=== PATIENT | female | born 1965 | race Caucasian/White ===

== ENCOUNTER 2016-10-12 16:57 | Emergency (ER) | payer OTHER ==
[~2016-10-12] VITALS: Ht 154.9 cm; Wt 90.7 kg
[~2016-10-12 16:57] MED LIST: HUM SUBQ; LANTUS SC
[2016-10-12 17:02] VITALS: BP 139/66
--- NOTE | 2016-10-12 18:18 | NUR ---
PT PRESENTS TO ER FOR EVALUATION OF LEFT ANKLE PAIN. PT STATES SHE HAS HX OF LEFT ANKLE FX. HX DM. DENIES N/V/D; SKIN IS PINK/WARM/DRY; AAOX4 WITH EVEN AND STEADY GAIT; LUNGS CLEAR BL; HR EVEN AND REGULAR; PT DENIES ANY FEVER, CP, SOB, OR COUGH AT THIS TIME; PATIENT STATES PAIN OF 7/10 AT THIS TIME; VSS; PATIENT POSITIONED FOR COMFORT; HOB ELEVATED; BEDRAILS UP X2; BED DOWN. ER MD MADE AWARE OF PT STATUS.
--- NOTE | 2016-10-12 19:17 | NUR ---
RECEIVED REPORT FROM PADMINI BROWN. SHY CHAKRABORTY, AWATING FOR D/C PAPER WORK.
--- NOTE | 2016-10-12 19:29 | NUR ---
PT REFUSED CRUTCHES. PT STATED HAD CRUTCHES AT HOME, AND A WALKER.
[2016-10-12 19:30] VITALS: BP 130/64
--- NOTE | 2016-10-12 19:30 | NUR ---
Patient discharged with v/s stable. Written and verbal after care instructions given and explained. Patient alert, oriented and verbalized understanding of instructions. Wheel Chair Assisted with by FAMILIA REEVES. All questions addressed prior to discharge. ID band removed. Patient advised to follow up with ORTHOPEDIC OR RETURN TO ER IF CONDITION GETS WORSE. PT STATES HAS AN APPT ON 10/19/16. Rx of IBUPROFEN 800MG given. Patient educated on indication of medication including possible reaction and side effects. Opportunity to ask questions provided and answered.
== END 2016-10-12 19:30 | disposition home or self-care (01) ==
LOC: MED 16:57
DX: S82.892D Other fracture of left lower leg, subsequent encounter for closed fracture with routine healing (principal); Z88.5 Allergy status to narcotic agent; E11.9 Type 2 diabetes mellitus without complications; Z79.4 Long term (current) use of insulin
CPT/HCPCS: 29515; 99283

== ENCOUNTER 2017-02-25 17:28 | Emergency (ER) | payer OTHER ==
[~2017-02-25] VITALS: Ht 152.4 cm; Wt 113.6 kg
[2017-02-25 17:35] VITALS: BP 126/69
--- NOTE | 2017-02-25 18:33 | NUR ---
Patient ambulated to bed 4 with family. RN evaluating patient at bedside.
--- NOTE | 2017-02-25 18:34 | NUR ---
2F BIB FAMILY C/O LEFT EAR PAIN X 2 DAYS; PT STATES " I THINK SOMETHING BIT ME BEHIND MY EAR AND IT HURTS" HX: DM. DENIES N/V/D; PT DENIES ANY FEVER, CP, SOB, OR COUGH AT THIS TIME; PATIENT STATES PAIN OF 2/10 AT THIS TIME; PATIENT POSITIONED FOR COMFORT; HOB ELEVATED; BEDRAILS UP X2; BED DOWN. ER MD MADE AWARE OF PT STATUS.
--- NOTE | 2017-02-25 18:48 | NUR ---
ER MD DR FELDER EVALUATING PT AT BEDSIDE.
--- NOTE | 2017-02-25 19:06 | NUR ---
Patient transferred to for further care.
--- NOTE | 2017-02-25 19:30 | NUR ---
Patient discharged with v/s stable. Written and verbal after care instructions given and explained. Patient alert, oriented and verbalized understanding of instructions. Ambulatory with steady gait. All questions addressed prior to discharge. ID band removed. Patient advised to follow up with PMD. Rx of KEFLEX 500 MG given. Patient educated on indication of medication including possible reaction and side effects. Opportunity to ask questions provided and answered.
[2017-02-25 19:46] VITALS: BP 135/61
== END 2017-02-25 19:30 | disposition home or self-care (01) ==
LOC: MED 17:28
DX: H60.12 Cellulitis of left external ear (principal); R03.0 Elevated blood-pressure reading, without diagnosis of hypertension; E11.9 Type 2 diabetes mellitus without complications; Z90.49 Acquired absence of other specified parts of digestive tract; Z79.84 Long term (current) use of oral hypoglycemic drugs; Z88.5 Allergy status to narcotic agent; Z88.1 Allergy status to other antibiotic agents
CPT/HCPCS: 82948; 99283

== ENCOUNTER 2017-03-27 19:27 | Emergency (ER) | payer OTHER ==
[~2017-03-27] VITALS: Ht 154.9 cm; Wt 104.3 kg
[2017-03-27 20:05] VITALS: BP 131/51
[2017-03-27 21:09] LABS: BASOPHILS # (AUTO) 0.2 K/uL (0.00-0.22); EOSINOPHILS # (AUTO) 0.1 K/uL (0-0.4); HEMATOCRIT 42.2 % (36-48); HEMOGLOBIN 14.4 g/dL (12.0-16.0); LYMPHOCYTES # (AUTO) 0.9 K/uL (2.5-16.5); MEAN CORPUSCULAR HEMOGLOBIN 33 pg (27-31); MEAN CORPUSCULAR HGB CONC 34 g/dL (33-37); MEAN CORPUSCULAR VOLUME 97 fL (80-94); MONOCYTES # (AUTO) 0.5 K/uL (0.8-1.0); PLATELET COUNT (AUTO) 37 K/uL (140-450); RED BLOOD CELL COUNT(AUTO) 4.33 MIL/uL (4.20-5.40); RED CELL DISTRIBUTION WIDTH 14.8 % (11.6-13.7); WHITE BLOOD COUNT (AUTO) 3.7 K/uL (4.8-10.8)
[2017-03-27 21:20] LABS: ANION GAP 8.9 (8-16); CREATININE 0.5 mg/dL (0.6-1.3); POTASSIUM 3.9 mmol/L (3.5-5.1)
[2017-03-27 21:25] LABS: ALBUMIN 2.5 g/dL (3.4-5.0); TOTAL BILIRUBIN 2.4 mg/dL (0.0-1.0)
[2017-03-27 21:34] LABS: PROTHROMBIN TIME 12.7 secs (10.8-13.4)
--- NOTE | 2017-03-27 21:52 | NUR ---
TO ER BED 6
--- NOTE | 2017-03-27 22:14 | NUR ---
PATIENT PRESENTS TO ED WITH C/O BILAT SWOLLEN LEGS. . PT DENIES N/V/D; SKIN IS PINK/WARM/DRY; AAOX4 WITH EVEN AND STEADY GAIT; LUNGS CLEAR BL; HR EVEN AND REGULAR; PT DENIES ANY FEVER, CP, SOB, OR COUGH AT THIS TIME; PATIENT STATES PAIN OF 0/10 AT THIS TIME; VSS; PATIENT POSITIONED FOR COMFORT; HOB ELEVATED; BEDRAILS UP X2; BED DOWN. ER MD MADE AWARE OF PT STATUS.
[2017-03-27 22:36] VITALS: BP 131/51
--- NOTE | 2017-03-27 22:36 | NUR ---
Patient discharged with v/s stable. Written and verbal after care instructions given and explained. Patient verbalized understanding. Ambulatory with steady gait. All questions addressed prior to discharge. Advised to follow up with PMD.
== END 2017-03-27 22:36 | disposition home or self-care (01) ==
LOC: MED 19:27
DX: R60.9 Edema, unspecified (principal); R03.0 Elevated blood-pressure reading, without diagnosis of hypertension; Z88.1 Allergy status to other antibiotic agents; Z88.5 Allergy status to narcotic agent; E11.9 Type 2 diabetes mellitus without complications
CPT/HCPCS: 36415; 71010; 80053; 82948; 83880; 84484; 85025; 85610; 85730; 93005; 99285

== ENCOUNTER 2017-11-14 14:48 | Inpatient (IN) | payer OTHER ==
[~2017-11-14] VITALS: Ht 154.9 cm; Wt 107.1 kg
[2017-11-14 15:00] VITALS: BP 142/70
--- NOTE | 2017-11-14 15:05 | NUR ---
PATIENT AMBULATED TO BED 2.
[2017-11-14] MEDS ORDERED: ALBUTEROL SULFATE/IPRATROPIU 3 ML SOL IH ONE (15:15)
[2017-11-14 15:32] LABS: HEMATOCRIT 36.7 % (36-48); HEMOGLOBIN 12.6 g/dL (12.0-16.0); MEAN CORPUSCULAR HEMOGLOBIN 32 pg (27-31); MEAN CORPUSCULAR HGB CONC 34 g/dL (33-37); MEAN CORPUSCULAR VOLUME 94.6 fL (80-94); PLATELET COUNT (AUTO) 48 K/uL (140-450); RED BLOOD CELL COUNT(AUTO) 3.88 MIL/uL (4.20-5.40); RED CELL DISTRIBUTION WIDTH 17.3 % (11.6-13.7)
--- NOTE | 2017-11-14 15:37 | NUR ---
PATIENT PRESENTS TO ER FOR SHORTNESS OF BREATH, NON PRODUCTIVE COUGH, AND LOWER LEG EDEMA X 1 WEEK. PATIENTS BREATHING IS LABORED, PLACED ON 2/L O2. PATIET HAS HX OF CHF, DIABETES, FATTY LIVER DISEASE, AND GALLBLADDER REMOVAL. IV HEPLOCK STARTED, 1 ATTEMPT, PATIENT TOLERATED WELL. EKG DONE. PATIENT SITTING UP IN GURNEY X 1 BEDRAIL UP. ER/MD MADE AWARE OF PATIENT STATUS.
[2017-11-14 15:40] LABS: CARBON DIOXIDE 24.8 mmol/L (21-32); CREATININE 0.6 mg/dL (0.6-1.3); POTASSIUM 3.8 mmol/L (3.5-5.1)
[2017-11-14 15:46] LABS: ALBUMIN 2.1 g/dL (3.4-5.0); TOTAL BILIRUBIN 2.4 mg/dL (0.0-1.0)
[2017-11-14 16:09] LABS: EOSINOPHILS % (MANUAL) 2 % (0-4); LYMPHOCYTES % (MANUAL) 20 % (20-46); MONOCYTES % (MANUAL) 16 % (5-12)
[2017-11-14] MEDS ORDERED: FUROSEMIDE 100 MG/10 ML VIAL IVP ONE (16:15)
[2017-11-14] MEDS ORDERED: LANTUS SUBQ (16:25)
[2017-11-14] MEDS ORDERED: HUM SUBQ (16:25)
[2017-11-14] MEDS ORDERED: NITROGLYCERIN 2% 1 GM PKT TP ONE (16:25)
[2017-11-14] MEDS ORDERED: FURO-570 PO (16:25)
[2017-11-14 16:27] LABS: PROTHROMBIN TIME 10.5 secs (10.8-13.4)
[2017-11-14 16:34] LABS: APPEARANCE,URINE CLEAR (CLEAR); BILIRUBIN,URINE NEGATIVE (NEGATIVE); BLOOD, URINE 2+ (NEGATIVE); COLOR,URINE YELLOW (YELLOW); LEUKOCYTE ESTERASE ,URINE NEGATIVE (NEGATIVE); NITRITE, URINE NEGATIVE (NEGATIVE); UGLUCOSE 3+ (NEGATIVE)
[2017-11-14 16:50] LABS: RBC,URINE 3-10 (FEW) /HPF (0-5); WBC,URINE 0-5 (RARE) /HPF (0-5)
[2017-11-14] MEDS ORDERED: HYDROcodone/APAP 5/325 MG 1 TAB TAB PO PRN ×2 (16:55)
[2017-11-14] MEDS ORDERED: ONDANSETRON 4 MG/2 ML VIAL IVP PRN (16:55)
[2017-11-14] MEDS ORDERED: ACETAMINOPHEN 325 MG TAB PO PRN (16:55)
[2017-11-14] MEDS ORDERED: LORazepam 2 MG/ML VIAL IVP PRN (16:55)
[2017-11-14] MEDS ORDERED: DEXTROSE 50% 50 ML SYR IVP PRN (16:55)
--- NOTE | 2017-11-14 17:05 | NUR ---
PT ARRIVED ON THE UNIT WITH 2 ER NURSES. PT IS ON NC O2 2L. PT AMBULATED FROM GURNEY TO BED TO BATHROOM. STEADY GAIT. PT IS AWAKE AND ORIENTED. INTRODUCED MYSELF AND UPDATED THE BOARD. PT IV ON LAC 20G SL. SKIN INTACT. BLE EDEMA, PITTING +2. ADMINISTERED TELE MONITOR. BROWN SOCKS. MRSA SCREENING DONE. V/S WITHIN NORMAL RANGE. DENIES PAIN AT THIS TIME. WILL CONTINUE TO MONITOR PT.
--- NOTE | 2017-11-14 17:11 | NUR ---
Patient will be admitted to care of . Admited to TELE]. Will go to room. Belongings list completed. Report to .
[2017-11-14 17:20] VITALS: BP 146/65
--- NOTE | 2017-11-14 18:44 | NUR ---
PT ON FLUID RESTRICTION OF 2L/DAY. PT IS ON STRICT I & O. REQUESTED PRICING CLERK TO PUT HAT IN BATHROOM. PT ATE DINNER AND RESTING COMFORTABLY. WILL CONTINUE TO MONITOR PT.
--- NOTE | 2017-11-14 19:15 | NUR ---
ENDORSED PT TO THE ZINC CHLORIDE OPERATOR NURSE AT BEDSIDE FOR CONTINUITY OF CARE. PT IS IN STABLE CONDITION.
--- NOTE | 2017-11-14 19:20 | NUR ---
RECEIVED PT FROM LONNIE WASHINGTON PT MORBID OBESITY ON 02 2 LTS VIA NC LABORED BREATHING EDEMA ON BLE ON TELEMETRY SR HL ON LEFT AC PATENT, DR YESENIA Sow IS HERE AND SEE THE PT
[2017-11-14 20:00] VITALS: BP 116/62
[2017-11-14] MEDS: BLOOD GLUCOSE MONITORING 1 DEV DEV FS SCH (20:56)
[2017-11-14] MEDS: INSULIN LISPRO SLIDING SCALE 100 UNITS/ML VIAL SUBQ PRN (20:59)
[2017-11-14] MEDS ORDERED: FUROSEMIDE 40 MG/4 ML VIAL IVP SCH (21:00)
[2017-11-14] MEDS: POTASSIUM CHLORIDE 10 MEQ TABER PO SCH (21:05)
[2017-11-14] MEDS: guaiFENesin DM 200/20 MG-10 ML 10 ML UDC PO PRN (21:06)
--- NOTE | 2017-11-14 21:30 | NUR ---
PT REMAIN STABLE AFTER TAKEN ROBITUSSIN
--- NOTE | 2017-11-14 23:03 | NUR ---
PT SLEEPING WELL ON TELEMETRY SR NOT SOB NOTED
[2017-11-15] VITALS: BP 118/51
[2017-11-15 00:30] LABS: CREATINE KINASE MB 0.4 ng/mL (0-3.6)
--- NOTE | 2017-11-15 01:00 | NUR ---
PT SLEEPING ON 2 LTS VIA NC NOT RESP DISTRESS NOTED ON TELEMETRY SR
[2017-11-15 04:00] VITALS: BP 118/47
--- NOTE | 2017-11-15 04:00 | NUR ---
SPONGE BATH GIVEN, LINEN CHANGED ON TELEMETRY SR REPOSITIONED PT ON 09 01 LTS VIA NC
[2017-11-15] MEDS: guaiFENesin DM 200/20 MG-10 ML 10 ML UDC PO PRN (04:47)
[2017-11-15] MEDS: ALBUTEROL 0.083% 2.5 MG/3 ML NEBU IH PRN ×3 (05:31→18:55)
[2017-11-15] MEDS: BLOOD GLUCOSE MONITORING 1 DEV DEV FS SCH ×4 (06:18→20:39)
[2017-11-15] MEDS: INSULIN LISPRO SLIDING SCALE 100 UNITS/ML VIAL SUBQ PRN ×4 (06:18→20:42)
--- NOTE | 2017-11-15 06:39 | NUR ---
BLOOD SUGAR TEST 177 GIVEN 2 UNITS SUBQ HUMALOG FOLLOWING PROTOCOL, PT ON TELEMETRY SR AND RESP HERE BREATHING TX ALREADY GIVEN
--- NOTE | 2017-11-15 07:40 | NUR ---
ENDORSEMENT RECEIVED FROM TEMPERATURE INSPECTOR NURSE. PATIENT IS AWAKE, ALERT. RESPIRATION EVEN, TACHYPNEIC ON 2L NC. COMPLAINED OF SOB. O2 WAS INCREASED TO 3L. VS IS STABLE. SKIN DRY AND WARM. IV PATENT AND INTACT. DENIED PAIN AT THIS TIME. PLAN OF CARE WAS DISCUSSED WITH PATIENT. BED AT LOW POSITION, SIDE RAILS UP. CALL LIGHT WITHIN REACH.
--- NOTE | 2017-11-15 07:58 | NUR ---
PT WAS NOT IN RESPIRATORY DISTRESS OR NO SOB NOTED. ASKED PT IF TX IS NEEDED AND SHE STATED DOES NOT WANT TX. SP02 94% HR 88 RR 16. WILL CONTINUE TO MONITOR.
[2017-11-15 08:00] VITALS: BP 110/47
[2017-11-15] MEDS: ENOXAPARIN 40 MG/0.4 ML SYR SUBQ SCH (08:33)
[2017-11-15] MEDS: FUROSEMIDE 40 MG/4 ML VIAL IVP SCH (08:35)
[2017-11-15] MEDS: POTASSIUM CHLORIDE 10 MEQ TABER PO SCH ×2 (08:35→20:46)
[2017-11-15 09:26] LABS: RED CELL DISTRIBUTION WIDTH 17.4 % (11.6-13.7)
[2017-11-15 09:45] LABS: HEMOGLOBIN 12.3 g/dL (12.0-16.0); MEAN CORPUSCULAR HEMOGLOBIN 32 pg (27-31); MEAN CORPUSCULAR HGB CONC 34 g/dL (33-37); MEAN CORPUSCULAR VOLUME 93.8 fL (80-94); PLATELET COUNT (AUTO) 62 K/uL (140-450); RED BLOOD CELL COUNT(AUTO) 3.84 MIL/uL (4.20-5.40); WHITE BLOOD COUNT (AUTO) 3.3 K/uL (4.8-10.8)
[2017-11-15 10:20] LABS: CREATINE KINASE MB 0.6 ng/mL (0-3.6)
[2017-11-15 10:21] LABS: ALBUMIN 2.2 g/dL (3.4-5.0); ANION GAP 8.9 (8-16); CARBON DIOXIDE 27.7 mmol/L (21-32); CREATININE 0.7 mg/dL (0.6-1.3); MAGNESIUM 1.3 mg/dL (1.8-2.4); POTASSIUM 3.6 mmol/L (3.5-5.1); TOTAL BILIRUBIN 2.9 mg/dL (0.0-1.0)
[2017-11-15 10:33] LABS: EOSINOPHILS % (MANUAL) 1 % (0-4); LYMPHOCYTES % (MANUAL) 25 % (20-46); MONOCYTES % (MANUAL) 12 % (5-12)
--- NOTE | 2017-11-15 10:58 | NUR ---
CONSENTS FOR CT AND MEDICAL RECORD WERE SIGNED AT BEDSIDE, BY PATIENT. DR. ALEX WAS MADE AWARE OF MG 1.3.
[2017-11-15] MEDS: guaiFENesin 20 MG/ML UDC PO PRN ×3 (11:02→21:00)
--- NOTE | 2017-11-15 11:15 | NUR ---
PATIENT AWAKE, ALERT. COMPLAINED OF NON PRODUCTIVE COUGH, MED WAS GIVEN PER ORDER. US TECH WAS AT BEDSIDE
--- NOTE | 2017-11-15 11:22 | NUR ---
CM NOTE INITIAL REVIEW FAXED TO [facility] [phone] SINGH # [phone]
[2017-11-15 12:00] VITALS: BP 112/39
[2017-11-15] MEDS ORDERED: MAG SULF 2000 MG/WATER PREMIX 50 ML IV SCH ×2 (12:15→15:09)
[2017-11-15] MEDS ORDERED: INSULIN LISPRO 100 UNITS/ML VIAL SUBQ SCH (13:00)
--- NOTE | 2017-11-15 14:00 | NUR ---
PATIENT WAS TRANSFERRED BACK FROM CT SCAN. PATIENT IS STABLE AT THIS TIME.
--- NOTE | 2017-11-15 14:01 | NUR ---
PATIENT HAS BEEN SCREENED AND CATEGORIZED HIGH NUTRITION RISK. PATIENT WILL BE SEEN WITHIN 1-2 DAYS OF ADMISSION. 11/15/17 - 11/16/[address]
--- NOTE | 2017-11-15 14:56 | NUR ---
11/15/17 RD INITIAL ASSESSMENT COMPLETED PLEASE REFER TO NUTRITION ASSESSMENT UNDER CARE ACTIVITY FOR ESTIMATED NUTRITIONAL NEEDS. 1. CONTINUE 2 GM NA AND CCHO 60 GM DIET TOLERATED 2. PROVIDED FLUID RESTRICTION AND CHF DIET EDUCATION TO PATIENT. 3. RD TO FOLLOW-UP 2-3 DAYS, HIGH RISK MADAY KOROMA RD
--- NOTE | 2017-11-15 15:57 | NUR ---
PATIENT AWAKE, ALERT. RESPIRATION EVEN, UNLABOR ON 3L NC. DENIED PAIN, SOB AT THIS TIME. VS IS STABLE. COMPLAINED OF INTERMITTENT COUGH, WILL MEDICATE PER ORDER. FAMILY AT BEDSIDE. CALL LIGHT WITHIN REACH
[2017-11-15 16:00] VITALS: BP 110/39
--- NOTE | 2017-11-15 17:08 | NUR ---
PATIENT COMPLAINED OF INTERMITTENT, NON PRODUCTIVE COUGH. MED WAS GIVEN PER ORDER.
--- NOTE | 2017-11-15 18:15 | NUR ---
PATIENT AWAKE, ALERT. RESPIRATION EVEN, UNLABOR ON 3L NC. IV PATENT AND INTACT. NO DISTRESS NOTED AT THIS TIME.DR. PATTERSON WAS AT BEDSIDE. FAMILY AT BEDSIDE. CALL LIGHT WITHIN REACH
--- NOTE | 2017-11-15 19:05 | NUR ---
RN CALLED TO BEDSIDE TO ASSESS FOR BREATHING TREATMENT. PATIENT COMPLAINING OF SOB. PRN TX ADMINISTERED. TOLERATED TX WELL. PATIENT STATES TO "FEEL BETTER". NO RESPIRATORY DISTRESS NOTED. WILL CONTINUE TO MONITOR.
--- NOTE | 2017-11-15 19:20 | NUR ---
ENDORSEMENT GIVEN TO THE SENIOR TECHNOLOGIST NURSE. PATIENT IS STABLE AT THIS TIME
--- NOTE | 2017-11-15 19:25 | NUR ---
RECEIVED PT FROM WILIAN WASHINGTON PT AAOX4 RESTING ON BED ON 02 3 LTS VIA NC ON TELEMETRY SR HL PATENT ON LEFT AC INITIAL ASSESSMENT DONE
[2017-11-15 20:00] VITALS: BP 137/57
--- NOTE | 2017-11-15 21:30 | NUR ---
BLOOD SUGAR TEST 235 COVERAGE WITH 4 UNITS HUMALOG SUBQ FOLLOWING PROTOCOL
[2017-11-16] VITALS: BP 130/60
--- NOTE | 2017-11-16 01:00 | NUR ---
PT SLEEPING WELL NOT DISTRESS NOTED ON 09 02 LTS VIA NC ON TELEMETRY SR
[2017-11-16 04:00] VITALS: BP 116/51
--- NOTE | 2017-11-16 04:00 | NUR ---
SPONGE BATHGIVEN LINEN CHANGED PT AMBULATES TO THE RESTROOOM VOIDING WELL ON TELE SR NOT SOB NOTED
[2017-11-16] MEDS: BLOOD GLUCOSE MONITORING 1 DEV DEV FS SCH ×4 (06:32→21:08)
--- NOTE | 2017-11-16 06:37 | NUR ---
BLOOD SUGAR TEST 147 NOT COVERAGE PT SLEEPING WELL
--- NOTE | 2017-11-16 07:40 | NUR ---
PATIENT WAS SLEEPING COMFORTABLY, EASILY AROUSABLE BY NAME. RESPIRATION EVEN, TACHYPNIC ON 3L NC. COMPLAINED OF SOB, WHEEZING UPON AUSCULTATION, O2 WAS INCREASED TO 4L, RT WAS NOTIFIED FOR BREATHING TX. SKIN DRY AND WARM. IV PATENT AND INTACT. DENIED PAIN AT THIS TIME. PLAN OF CARE WAS DISCUSSED WITH PATIENT. BED AT LOW POSITION, SIDE RAILS UP. CALL LIGHT WITHIN REACH.
[2017-11-16 07:45] LABS: CHOL/HDL RATIO 3.9 (1-4.5); THYROID STIMULATING HORMONE 1.17 uIU/mL (0.34-3.74)
[2017-11-16 08:00] VITALS: BP 130/66
[2017-11-16] MEDS: guaiFENesin 20 MG/ML UDC PO PRN ×2 (08:29→16:53)
[2017-11-16] MEDS: POTASSIUM CHLORIDE 10 MEQ TABER PO SCH ×2 (08:29→21:05)
[2017-11-16] MEDS: FUROSEMIDE 40 MG/4 ML VIAL IVP SCH (08:29)
[2017-11-16] MEDS ORDERED: INSULIN LANTUS 100 UNITS/ML 10 ML VIAL SUBQ SCH ×2 (09:00→21:00)
[2017-11-16] MEDS: ENOXAPARIN 40 MG/0.4 ML SYR SUBQ SCH (09:00)
--- NOTE | 2017-11-16 09:48 | NUR ---
CM NOTE CONCURRENT REVIEW FAXED TO [facility] [phone] SINGH # [phone]
[2017-11-16] MEDS ORDERED: MAG SULF 2000 MG/WATER PREMIX 100 ML IV SCH (10:00)
[2017-11-16] MEDS: ALBUTEROL 0.083% 2.5 MG/3 ML NEBU IH PRN ×2 (10:01→15:14)
--- NOTE | 2017-11-16 11:37 | NUR ---
PATIENT IS SLEEPING COMFORTABLY. RESPIRATION EVEN, UNLABOR ON 3L NC. DENIED PAIN, SOB AT THIS TIME. NO DISTRESS NOTED. VS IS STABLE. CALL LIGHT WITHIN REACH
[2017-11-16 11:49] LABS: BASOPHILS # (AUTO) 0.1 K/uL (0.00-0.22); BASOPHILS % (AUTO) 1.5 % (0.0-2.0); EOSINOPHILS # (AUTO) 0.2 K/uL (0-0.4); EOSINOPHILS % (AUTO) 5.2 % (0.0-4.0); HEMATOCRIT 35.8 % (36-48); HEMOGLOBIN 11.7 g/dL (12.0-16.0); LYMPHOCYTES # (AUTO) 0.8 K/uL (2.5-16.5); LYMPHOCYTES % (AUTO) 19.5 % (20.5-51.1); MEAN CORPUSCULAR HEMOGLOBIN 31 pg (27-31); MEAN CORPUSCULAR HGB CONC 33 g/dL (33-37); MONOCYTES # (AUTO) 0.8 K/uL (0.8-1.0); MONOCYTES % (AUTO) 19.4 % (1.7-9.3); NEUTROPHILS # (AUTO) 2.2 K/uL (1.8-7.7); NEUTROPHILS % (AUTO) 54.4 % (42.2-75.2); PLATELET COUNT (AUTO) 52 K/uL (140-450); RED BLOOD CELL COUNT(AUTO) 3.73 MIL/uL (4.20-5.40); RED CELL DISTRIBUTION WIDTH 18.2 % (11.6-13.7)
[2017-11-16] MEDS: INSULIN LISPRO SLIDING SCALE 100 UNITS/ML VIAL SUBQ PRN ×3 (11:53→21:15)
[2017-11-16 12:00] VITALS: BP 121/52
[2017-11-16 12:16] LABS: ANION GAP 9.9 (8-16); CARBON DIOXIDE 25.3 mmol/L (21-32); CREATININE 0.5 mg/dL (0.6-1.3); POTASSIUM 4.2 mmol/L (3.5-5.1)
--- NOTE | 2017-11-16 13:52 | NUR ---
PATIENT AWAKE, ALERT. RESPIRATION EVEN, UNLABOR ON ROOM AIR. RESPIRATION EVEN, UNLABOR ON 3L NC. COMPLAINED OF INTERMITTENT NON PRODUCTIVE COUGH, WILL MEDICATE PER ORDER. CALL LIGHT WITHIN REACH. 2ND BAG OF MAG WAS HUNG.
--- NOTE | 2017-11-16 15:05 | NUR ---
PATIENT AWAKE, ALERT. COMPLAINED OF SOB ON 3L AND REQUESTED BREATHING TREATMENT. RT WAS NOTIFIED.
[2017-11-16 16:00] VITALS: BP 120/52
--- NOTE | 2017-11-16 16:00 | NUR ---
PATIENT IS AWAKE, ALERT. RESPIRATION EVEN, TACHYPNEIC AND DESATURATE ON 4L NC. RT WAS AT BEDSIDE, PATIENT IS PLACED ON 3L OXIMIZER. IV PATENT AND INTACT. VS IS STABLE.
--- NOTE | 2017-11-16 16:02 | NUR ---
DR. GRAY WERE MADE AWARE OF PATIENT'S SOB AND WHEEZING AFTER BREATHING TREATMENT. ORDERS WERE RECEIVED, WILL MEDICATE PER ORDER
--- NOTE | 2017-11-16 18:05 | NUR ---
PATIENT IS AWAKE, ALERT, EATING DINNER. RESPIRATION EVEN, UNLABOR ON 3L OXIMIZER. IV PATENT AND INTACT. NO DISTRESS NOTED AT THIS TIME. CALL LIGHT WITHIN REACH
--- NOTE | 2017-11-16 19:19 | NUR ---
ENDORSEMENT GIVEN TO THE METAL SPRAYER PROTECTIVE COATING NURSE. PATIENT IS STABLE AT THIS TIME
--- NOTE | 2017-11-16 19:23 | NUR ---
RECEIVED REPORT FROM NIGHT RN. PT RESTING IN BED. AAOX4. NO S/S OF ACUTE DISTRESS. PT DENIES PAIN. IV SITE PATENT AND INTACT. ON O2 4L NC. PLAN OF CARE DISCUSSED AND PT VERBALIZED UNDERSTANDING. CALL LIGHT WITHIN REACH. SAFETY MEASURES ENSURED. WILL CONTINUE TO MONITOR.
[2017-11-16 20:00] VITALS: BP 122/54
[2017-11-16] MEDS: ALBUTEROL SULFATE/IPRATROPIU 3 ML SOL IH SCH (20:33)
[2017-11-16] MEDS: methylPREDNISolone SS 40 MG/ML VIAL IVP SCH (21:05)
[2017-11-17] VITALS: BP 125/61
--- NOTE | 2017-11-17 01:22 | NUR ---
PT SLEEPING IN BED. NO S/S OF ACUTE DISTRESS. CALL LIGHT WITHIN REACH. SAFETY MEASURES ENSURED. WILL CONTINUE TO MONITOR.
[2017-11-17] MEDS: ALBUTEROL SULFATE/IPRATROPIU 3 ML SOL IH SCH ×4 (02:03→18:43)
[2017-11-17 04:00] VITALS: BP 120/60
--- NOTE | 2017-11-17 04:08 | NUR ---
PT SLEEPING IN BED. NO S/S OF ACUTE DISTRESS. CALL LIGHT WITHIN REACH. SAFETY MEASURES ENSURED. WILL CONTINUE TO MONITOR.
[2017-11-17] MEDS: methylPREDNISolone SS 40 MG/ML VIAL IVP SCH ×3 (05:32→20:56)
[2017-11-17] MEDS: BLOOD GLUCOSE MONITORING 1 DEV DEV FS SCH ×4 (05:32→20:55)
[2017-11-17] MEDS: INSULIN LISPRO SLIDING SCALE 100 UNITS/ML VIAL SUBQ PRN ×4 (06:32→21:06)
[2017-11-17 06:36] LABS: BASOPHILS % (AUTO) 0.2 % (0.0-2.0); EOSINOPHILS % (AUTO) 0.2 % (0.0-4.0); HEMATOCRIT 37.2 % (36-48); HEMOGLOBIN 12.6 g/dL (12.0-16.0); LYMPHOCYTES # (AUTO) 0.4 K/uL (2.5-16.5); LYMPHOCYTES % (AUTO) 13.6 % (20.5-51.1); MEAN CORPUSCULAR HEMOGLOBIN 32 pg (27-31); MEAN CORPUSCULAR HGB CONC 34 g/dL (33-37); MEAN CORPUSCULAR VOLUME 95.7 fL (80-94); MONOCYTES # (AUTO) 0.1 K/uL (0.8-1.0); MONOCYTES % (AUTO) 4.1 % (1.7-9.3); NEUTROPHILS # (AUTO) 2.5 K/uL (1.8-7.7); NEUTROPHILS % (AUTO) 81.9 % (42.2-75.2); PLATELET COUNT (AUTO) 49 K/uL (140-450); RED BLOOD CELL COUNT(AUTO) 3.89 MIL/uL (4.20-5.40); RED CELL DISTRIBUTION WIDTH 17.7 % (11.6-13.7); WHITE BLOOD COUNT (AUTO) 3.1 K/uL (4.8-10.8)
--- NOTE | 2017-11-17 07:25 | NUR ---
ENDORSED PLAN OF CARE TO NIGHT RN. PT REMAINS STABLE.
--- NOTE | 2017-11-17 07:30 | NUR ---
PATIENT IS AWAKe, ALERT. RESPIRATION EVEN, UNLABOR. SKIN DRY AND WARM. IV PATENT AND INTACT. DENIED PAIN AT THIS TIME. COMPLAINED OF COUGHING, AND SLIGHT SOB. PATIENT IS GETTING BREATHING TX BY RT. PATIENT WAS INFORMED THAT THE O2 WILL BE DECREASE TO 2L TO ASSESS HER BREATHING. PATIENT VERBALIZED UNDERSTANDING. PLAN OF CARE WAS DISCUSSED WITH PATIENT. BED AT LOW POSITION, HOB IS ELEVATED. CALL LIGHT WITHIN REACH
[2017-11-17 07:38] LABS: ANION GAP 11.2 (8-16); CARBON DIOXIDE 23.8 mmol/L (21-32); CREATININE 0.6 mg/dL (0.6-1.3)
[2017-11-17 08:00] VITALS: BP 128/55
[2017-11-17] MEDS: guaiFENesin 20 MG/ML UDC PO PRN ×2 (09:07→21:26)
[2017-11-17] MEDS: POTASSIUM CHLORIDE 10 MEQ TABER PO SCH ×2 (09:07→20:56)
[2017-11-17] MEDS: FUROSEMIDE 40 MG/4 ML VIAL IVP SCH (09:08)
--- NOTE | 2017-11-17 09:15 | NUR ---
PT PULSE OX SPO2 WALKING FROM RESTROOM .84 ROOM AIR PLACED PT ON 2LPM NC SPO2 94 RN AWARE
[2017-11-17] MEDS ORDERED: PRED10TA6 PO (09:16)
[2017-11-17] MEDS ORDERED: DOXY-441 PO (09:16)
[2017-11-17] MEDS ORDERED: ALBU117P IH (09:16)
[2017-11-17] MEDS: INSULIN LANTUS 100 UNITS/ML 10 ML VIAL SUBQ SCH ×2 (09:17→21:05)
--- NOTE | 2017-11-17 09:30 | NUR ---
PATIENT DESATURATED TO 86% ON ROOM AIR FROM WALKING TO THE BATHROOM, AND 92% ON 2L NC PER RT. DR. GRAY WERE MADE AWARE
--- NOTE | 2017-11-17 11:41 | NUR ---
FAXED CONCURRENT REVIEW TO [facility] [phone] PHONE SINGH [phone] I SPOKE WITH SINGH ABOUT HOME O2. SHE SAID TO CALL RAYMOND MATUTE [phone]. I SPOKE WITH RAYMOND AND FAXED ORDER, ETC TO HIM AT [phone].
--- NOTE | 2017-11-17 11:59 | NUR ---
PATIENT IS AWAKE, ALERT. RESPIRATION EVEN, UNLABOR ON 2L NC. COMPLAINED OF LIGHT HEADACHE, INSTRUCTED PATIENT TO REPOSITION OR GET UP SLOWLY. PATIENT VERBALIZED UNDERSTANDING. SPONGE BATH WAS GIVEN. NO DISTRESS NOTED AT THIS TIME
[2017-11-17 12:00] VITALS: BP 108/48
--- NOTE | 2017-11-17 13:30 | NUR ---
RECEIVED REPORT FROM PADMINI HARDING REGARDING PATIENT. PATIENT SITTING IN BED WATCHING TV. NO DISTRESS NOTED. RESPIRATIONS EVEN, UNLABORED, ON O2 2L/MIN VIA NC. SAFETY MEASURES IN PLACE, CALL LIGHT WITHIN REACH. WILL CONTINUE TO MONITOR.
--- NOTE | 2017-11-17 14:02 | NUR ---
PHYSICAL THERAPIST AT BEDSIDE WORKING WITH PATIENT. WILL CONTINUE TO MONITOR.
[2017-11-17 16:00] VITALS: BP 109/54
--- NOTE | 2017-11-17 16:15 | NUR ---
11/17/17 RD FOLLOW UP COMPLETED PLEASE REFER TO NUTRITION ASSESSMENT UNDER CARE ACTIVITY FOR ESTIMATED NUTRITIONAL NEEDS. 1.[facility]UE [facility] AND 2 GM NA DIET TOLERATED 2.PROVIDIED [facility] DIET EDUCATION TO PT. 3.RD FOLLOW-UP 3-5 DAYS, MODERATE RISK MADAY KOROMA RD
--- NOTE | 2017-11-17 17:02 | NUR ---
PATIENT SITTING IN BED TALKING WITH DAUGHTER AT BEDSIDE. NO DISTRESS NOTED. DENIES ANY PAIN. SAFETY MEASURES IN PLACE, CALL LIGHT WITHIN REACH. WILL CONTINUE TO MONITOR.
--- NOTE | 2017-11-17 19:22 | NUR ---
RECEIVED REPORT FROM DAY SHIFT NURSE MIKE-RN. PT RESTING IN BED TALKING ON THE PHONE WITH FAMILY. NO S/S OF RESPIRATORY DISTRESS OR DISCOMFORT NOTED AT THIS TIME. AOX4, ON 2L NC WITH IV LEFT AC #20G SALINE LOCK. IV PATENT AND FLUSHING WELL. DISCUSSED CURRENT PLAN OF CARE AND PT VERBALIZED UNDERSTANDING. WHITE BOARD UPDATED. BED IN LOWEST POSITION, BED BREAKS LOCKED. BED SIDE TABLE AND CALL LIGHT WITHIN REACH. WILL CONTINUE TO MONITOR.
--- NOTE | 2017-11-17 19:22 | NUR ---
GAVE REPORT TO MAPLE PRODUCTS SUPERVISOR NURSE FOR CONTINUITY OF CARE. PATIENT IN STABLE CONDITION.
[2017-11-17 20:00] VITALS: BP 128/51
--- NOTE | 2017-11-17 20:55 | NUR ---
BLOOD GLUCOSE LEVEL 355. PT WILL NEED INSULIN COVERAGE.
--- NOTE | 2017-11-17 21:30 | NUR ---
SCHEDULED MEDICATION GIVEN. HUMALOG 10UNITS GIVEN PER SLIDING SCALE AND 10 UNITS OF LANTUS GIVEN SCHEDULED FOR 355 BLOOD GLUCOSE. PT ALSO REQUESTED ROBITUSSIN FOR COUGH AND GIVEN. KDUR WITHHELD PER CONTRAINDICATED PARAMETERS- POTASSIUM LEVELS CURRENTLY 5.0 OF THIS MORNING. PT TOLERATED MEDICATIONS WELL. WILL CONTINUE TO MONITOR.
--- NOTE | 2017-11-17 23:21 | NUR ---
PT RESTING WATCHING TV AT THIS TIME. NO S/S OF RESPIRATORY DISTRESS OR DISCOMFORT NOTED AT THIS TIME. WILL CONTINUE TO MONITOR.
[2017-11-18] VITALS: BP 129/67
--- NOTE | 2017-11-18 01:03 | NUR ---
PT CONTINUES TO REST IN BED WATCHING TV. WILL CONTINUE TO MONITOR.
[2017-11-18] MEDS: ALBUTEROL SULFATE/IPRATROPIU 3 ML SOL IH SCH ×2 (01:14→07:04)
--- NOTE | 2017-11-18 02:05 | NUR ---
PT C/O SOB, CRYING AND ANXIOUS. CONTACTED RT THERAPIST. SIMPLE MASK APPLIED AND O2 INCREASED TO 6L. PT ALSO C/O DRY THROAT DESPITE USING THROAT COUGH DROPS AND MOISTENING MOUTH WITH WATER. O2SATS INCREASED FROM 93% TO 95% WITH SIMPLE MASK. WILL CONTINUE TO MONITOR.
--- NOTE | 2017-11-18 02:09 | NUR ---
0115 HHNTX GIVEN. PT STILL COMPLAINS OF SOB. PLACED PT ON 6L SIMPLE MASK.. PT WILL WEAR THAT TO SEE IF IT IMPROVES HER BREATHING. SATS 97% ON 6LSM
--- NOTE | 2017-11-18 02:15 | NUR ---
PT NOW SITTING UP IN HIGH FOWLERS WITH SIMPLE FACE MASK ON 6L O2. NO LONGER ANXIOUS. O2SATS AT 97%. STILL C/O DRY MOUTH. BLAMING THE SOLU-MEDROL FOR THE DRY MOUTH AND NOT WANTING HER 0500 DOSE. WILL CONTINUE TO MONITOR.
--- NOTE | 2017-11-18 02:50 | NUR ---
PT STATED THAT THE 6L IN THE SIMPLE MASK WAS TOO MUCH AND WANTED IT LOWERED. O2 HAD BEEN LOWERED ON THE WALL TO 3L AND I LOWERED IT BACK TO 2L. PT NO LONGER CRYING OR ANXIOUS HOWEVER STILL C/O DRY THROAT AND DRINKING WATER TO MOISTEN HER THROAT. SUGGESTED SHE USE MOUTH WASH TO MOISTEN HER MOUTH SINCE SHE IS ON FLUID RESTRICTIONS. WILL CONTINUE TO MONITOR.
[2017-11-18 04:00] VITALS: BP 113/59
[2017-11-18] MEDS: methylPREDNISolone SS 40 MG/ML VIAL IVP SCH (05:00)
--- NOTE | 2017-11-18 05:00 | NUR ---
PT RESTING IN BED. WILL CONTINUE TO MONITOR.
[2017-11-18] MEDS: BLOOD GLUCOSE MONITORING 1 DEV DEV FS SCH ×2 (05:58→11:30)
[2017-11-18 06:43] LABS: HEMATOCRIT 35.8 % (36-48); HEMOGLOBIN 11.8 g/dL (12.0-16.0); LYMPHOCYTES # (AUTO) 0.6 K/uL (2.5-16.5); LYMPHOCYTES % (AUTO) 7.6 % (20.5-51.1); MEAN CORPUSCULAR HEMOGLOBIN 32 pg (27-31); MEAN CORPUSCULAR HGB CONC 33 g/dL (33-37); MEAN CORPUSCULAR VOLUME 96.3 fL (80-94); MONOCYTES # (AUTO) 0.5 K/uL (0.8-1.0); MONOCYTES % (AUTO) 6.6 % (1.7-9.3); NEUTROPHILS # (AUTO) 6.3 K/uL (1.8-7.7); NEUTROPHILS % (AUTO) 85.8 % (42.2-75.2); PLATELET COUNT (AUTO) 53 K/uL (140-450); RED BLOOD CELL COUNT(AUTO) 3.72 MIL/uL (4.20-5.40); RED CELL DISTRIBUTION WIDTH 18.3 % (11.6-13.7); WHITE BLOOD COUNT (AUTO) 7.3 K/uL (4.8-10.8)
[2017-11-18] MEDS: INSULIN LISPRO SLIDING SCALE 100 UNITS/ML VIAL SUBQ PRN ×2 (06:50→12:50)
[2017-11-18 07:02] LABS: ANION GAP 11.5 (8-16); CARBON DIOXIDE 23.5 mmol/L (21-32); CREATININE 0.7 mg/dL (0.6-1.3)
--- NOTE | 2017-11-18 07:10 | NUR ---
ENDORSED PT CARE TO DAY SHIFT NURSE LISETH FOR CONTINUITY OF CARE. PT IN STABLE CONDITION.
--- NOTE | 2017-11-18 07:11 | NUR ---
RECEIVED REPORT FROM SURGICAL GARMENT FITTER RN. PATIENT IS AAOX4, HAS NASAL CANNULA ON AT 2LPM. HAS NO SIGNS AND SYMPTOMS OF ACUTE DISTRESS NOTED AT THIS TIME. HAS IV TO THE RIGHT AC 20G SALINE LOCK AT THIS TIME. SITE IS CLEAN, DRY, PATENT AND INTACT. DISCUSSED PLAN OF CARE WITH PATIENT AND SHE VERBALIZED UNDERSTANDING. BED IN LOWEST POSITION, SIDE RAILS UP X2, CALL LIGHT WITHIN REACH. WILL CONTINUE TO MONITOR.
[2017-11-18 08:00] VITALS: BP 129/53
[2017-11-18] MEDS ORDERED: MONT10TA35 PO (09:00)
[2017-11-18] MEDS ORDERED: CODE118S2 PO (09:00)
[2017-11-18] MEDS: POTASSIUM CHLORIDE 10 MEQ TABER PO SCH (09:00)
[2017-11-18] MEDS: FUROSEMIDE 40 MG/4 ML VIAL IVP SCH (09:46)
[2017-11-18] MEDS: guaiFENesin 20 MG/ML UDC PO PRN (09:49)
[2017-11-18] MEDS: INSULIN LANTUS 100 UNITS/ML 10 ML VIAL SUBQ SCH (09:49)
[2017-11-18 12:00] VITALS: BP 123/50
[2017-11-18] MEDS ORDERED: ALBUTEROL SULFATE/IPRATROPIU 3 ML SOL IH PRN (12:00)
--- NOTE | 2017-11-18 14:20 | NUR ---
DISCHARGE ORDER IS IN PLACE. GAVE PATIENT DISCHARGE PACKET, INFORMED HER THAT THERE ARE PRESCRIPTIONS IN THE PACKET FOR HER. EDUCATED PATIENT ON S/SX OF DISTRESS TO SEEK EMERGENCY MEDICAL ATTENTION. SHE VERBALIZED UNDERSTANDING. PATIENT IS GOING HOME WITH O2 TANK AND OXYMIZER CANNULA. REMOVED IV FROM SITE, CANNULA INTACT. SITE IS CLEAN AND DRY. PATIENT HAS NO SIGNS AND SYMPTOMS OF ACUTE DISTRESS NOTED AT THIS TIME. WILL WHEEL PATIENT OUT.
== END 2017-11-18 14:20 | disposition home or self-care (01) | DRG 140 ==
LOC: MED 14:48 → MTU 16:40
PROVIDERS: ADMIT Hospitalist; ATTEND Hospitalist
DX: J44.0 Chronic obstructive pulmonary disease with (acute) lower respiratory infection (principal); J96.11 Chronic respiratory failure with hypoxia; D69.6 Thrombocytopenia, unspecified; I11.0 Hypertensive heart disease with heart failure; E44.1 Mild protein-calorie malnutrition; I50.32 Chronic diastolic (congestive) heart failure; J45.901 Unspecified asthma with (acute) exacerbation; J20.9 Acute bronchitis, unspecified; J44.1 Chronic obstructive pulmonary disease with (acute) exacerbation; K75.81 Nonalcoholic steatohepatitis (NASH); E83.42 Hypomagnesemia; E66.01 Morbid (severe) obesity due to excess calories; I87.2 Venous insufficiency (chronic) (peripheral); I89.0 Lymphedema, not elsewhere classified; R60.1 Generalized edema; K21.9 Gastro-esophageal reflux disease without esophagitis; E66.09 Other obesity due to excess calories; E08.9 Diabetes mellitus due to underlying condition without complications; F32.9 Major depressive disorder, single episode, unspecified; I87.8 Other specified disorders of veins; E88.09 Other disorders of plasma-protein metabolism, not elsewhere classified; G47.30 Sleep apnea, unspecified; F41.9 Anxiety disorder, unspecified; Z88.1 Allergy status to other antibiotic agents; Z99.81 Dependence on supplemental oxygen; Z68.41 Body mass index [BMI] 40.0-44.9, adult; Z88.5 Allergy status to narcotic agent; Z91.018 Allergy to other foods; Z79.899 Other long term (current) drug therapy; Z90.49 Acquired absence of other specified parts of digestive tract; Z98.891 History of uterine scar from previous surgery; Z79.4 Long term (current) use of insulin
CPT/HCPCS: 36415; 36600; 71045; 71275; 80048; 80053; 81001; 82140; 82550; 82553; 82803; 82948; 83036; 83605; 83735; 83880; 84443; 84484; 85025; 85610; 85730; 87040; 87081; 93005; 93970; 94640; 94660; 96374; 97140; 99285; J1650; J1815; J1940; J2920; J3475; J7030; J7613; J7620; Q0092; Q9967

== ENCOUNTER 2017-12-10 22:50 | Inpatient (IN) | payer OTHER ==
[~2017-12-10] VITALS: Ht 154.9 cm; Wt 121.6 kg
[~2017-12-10 22:50] MED LIST changes: +ALBU117P IH; +CODE118S2 PO; +DOXY-441 PO; +FURO-570 PO; +LANTUS SUBQ; +MONT10TA35 PO; +PRED10TA6 PO
--- NOTE | 2017-12-10 22:50 | NUR ---
PT BIBA TO ER BED 10
--- NOTE | 2017-12-10 22:50 | NUR ---
52/F BIBA W C/O GENERALIZED WEAKNESS, FATIGUE, DIZZINESS X 2 DAYS. AOX4, GCS 15. PT STATES SHE FEELS DISORIENTED. PT ARRIVED ON 4LPMNC, SATS 94%. PT IS ON 2LPMNC AT HOME. REPORTS NAUSEA EN ROUTE, WAS GIVEN ZOFRAN 4MG IVP. ALL LUNG SOUNDS CBTA, BUT DIMINISHED THROUGHOUT. DENIES SOB/CP/COUGH, V/D, FEVER/CHILLS. PMH: CHF, HTN, DM
[2017-12-10 22:53] VITALS: BP 109/57
[2017-12-10] MEDS ORDERED: NACL 0.9% 1,000 ML IV ONE (23:10)
[2017-12-10 23:34] LABS: HEMATOCRIT 36.6 % (36-48); HEMOGLOBIN 12.2 g/dL (12.0-16.0); MEAN CORPUSCULAR HEMOGLOBIN 32 pg (27-31); MEAN CORPUSCULAR HGB CONC 34 g/dL (33-37); MEAN CORPUSCULAR VOLUME 94.8 fL (80-94); PLATELET COUNT (AUTO) 46 K/uL (140-450); RED BLOOD CELL COUNT(AUTO) 3.86 MIL/uL (4.20-5.40); RED CELL DISTRIBUTION WIDTH 18.3 % (11.6-13.7); WHITE BLOOD COUNT (AUTO) 10.1 K/uL (4.8-10.8)
[2017-12-10 23:43] LABS: ANION GAP 11.7 (8-16); CARBON DIOXIDE 23.9 mmol/L (21-32); CREATININE 0.8 mg/dL (0.6-1.3); POTASSIUM 3.6 mmol/L (3.5-5.1)
[2017-12-10 23:45] LABS: APPEARANCE,URINE SL CLOUDY (CLEAR); BILIRUBIN,URINE 2+ (NEGATIVE); BLOOD, URINE 2+ (NEGATIVE); LEUKOCYTE ESTERASE ,URINE NEGATIVE (NEGATIVE); NITRITE, URINE NEGATIVE (NEGATIVE); PH,URINE 5.5 (5.0-9.0); UGLUCOSE NEGATIVE (NEGATIVE)
[2017-12-10 23:48] LABS: LYMPHOCYTES % (MANUAL) 5 % (20-46); MONOCYTES % (MANUAL) 11 % (5-12)
[2017-12-10] MEDS ORDERED: LEVOFLOXACIN 500 MG/D5W PREMIX 100 ML IV ONE (23:55)
[2017-12-10] MEDS ORDERED: AZITHROMYCIN 1,000 MG in DEXTROSE 5% 500 ML IV ONE (23:55)
[2017-12-10 23:57] LABS: TOTAL BILIRUBIN 5.3 mg/dL (0.0-1.0)
[2017-12-11 00:01] LABS: COLOR,URINE AMBER (YELLOW)
[2017-12-11] MEDS ORDERED: AZITHROMYCIN 500 MG INJ VIAL IV ONE ×2 (00:02→00:03)
[2017-12-11 00:03] LABS: RBC,URINE 0-5 (RARE) /HPF (0-5); WBC,URINE 0-5 (RARE) /HPF (0-5)
--- NOTE | 2017-12-11 00:10 | NUR ---
Patient appears to be resting comfortably in bed. Vital Signs within normal limits. Respirations even and unlabored.
[2017-12-11] MEDS ORDERED: ASPIRIN 81 MG TAB.CHEW PO ONE (00:30)
[2017-12-11] MEDS ORDERED: DEXTROSE 50% 50 ML SYR IVP PRN (01:35)
[2017-12-11] MEDS ORDERED: NACL 0.9% 1,000 ML IV SCH (01:36)
[2017-12-11] MEDS ORDERED: ALBUTEROL 0.083% 2.5 MG/3 ML NEBU INH PRN (01:40)
[2017-12-11] MEDS ORDERED: MORPHINE SULFATE 4 MG/ML SYR IVP PRN (01:40)
[2017-12-11] MEDS ORDERED: ACETAMINOPHEN 325 MG TAB PO PRN (01:40)
[2017-12-11] MEDS ORDERED: HYDROcodone/APAP 5/325 MG 1 TAB TAB PO PRN (01:40)
--- NOTE | 2017-12-11 02:21 | NUR ---
Patient will be admitted to [facility]. Admited to TELE. Will go to room 107A. Belongings list completed. BEDSIDE Report to INDIRA WASHINGTON.
[2017-12-11 02:25] VITALS: BP 116/63
--- NOTE | 2017-12-11 02:25 | NUR ---
ADMITTED A 52 FEMALE FROM ER. CAME BY TINO. AMBULATORY BUT WITH GENERALIZED WEAKNESS. ON TELE -SR. PT IS OBESE. WITH O2 4L/NC. NO SOB NOTED. DENIES ANY PAIN. BLE EDEMA 2+. SKIN INTACT. WITH ANTIBIOTICS STILL INFUSING. PLAN OF CARE DISCUSSED AND VERBALIZED UNDERSTANDING. ORIENTED TO HOSPITAL ROUTINES. BED ON LOW POSITION, FREQUENT ROUNDS NEEDED. CALL LIGHT PLACED WITHIN EASY REACH. WILL FOLLOW UP ADMIT ORDERS. WILL CONTINUE TO MONITOR.
--- NOTE | 2017-12-11 03:10 | NUR ---
LAB CALLED FOR CRITICAL VALUE LACTIC ACID STILL ELEVATED 2.7. WENT DOWN FROM 3.[address] OS[address]AN[address] DR SOLORIO HORSE RACE STARTER. ABLE TO TALKED TO HIM AND MADE AWARE. NO NEW ORDER MADE.
[2017-12-11] MEDS: ONDANSETRON 4 MG/2 ML VIAL IVP PRN ×2 (03:15→20:51)
[2017-12-11] MEDS: INSULIN LISPRO SLIDING SCALE 100 UNITS/ML VIAL SUBQ PRN ×2 (06:24→12:26)
[2017-12-11] MEDS: BLOOD GLUCOSE MONITORING 1 DEV DEV FS SCH ×4 (06:24→21:06)
--- NOTE | 2017-12-11 06:24 | NUR ---
BLOOD SUGAR WAS CHECKED THIS AM RESULT 199. INSULIN COVERAGE GIVEN SUBQ.
[2017-12-11] MEDS: ALBUTEROL 0.083% 2.5 MG/3 ML NEBU INH SCH ×3 (06:37→18:46)
--- NOTE | 2017-12-11 07:25 | NUR ---
ENDORSED PT IN STABLE CONDITION TO AM NURSE.
--- NOTE | 2017-12-11 07:25 | NUR ---
ASSUMED CONTINUITY OF CARE. NO SIGNS AND SYMPTOMS OF ACUTE DISTRESS NOTICED. INITIAL ASSESSMENT DONE. KEEP COMFORTABLE ON BED. EXPLAINED DIAGNOSIS, PLAN OF CARE, PAIN MANAGEMENT TEACHING, USE OF CALL LIGHT/BED/TV/BATHROOM. VERBALIZED UNDERSTANDING. FALL PRECAUTION APPLIED. CALL LIGHT WITHIN REACH.
[2017-12-11 08:00] VITALS: BP 109/58
[2017-12-11] MEDS: MONTELUKAST SODIUM 10 MG TAB PO SCH (08:47)
[2017-12-11] MEDS: INSULIN LANTUS 100 UNITS/ML 10 ML VIAL SUBQ SCH (08:48)
[2017-12-11] MEDS ORDERED: FUROSEMIDE 40 MG TAB PO SCH (09:00)
[2017-12-11] MEDS ORDERED: ENOXAPARIN 40 MG/0.4 ML SYR SUBQ SCH (09:00)
--- NOTE | 2017-12-11 09:07 | NUR ---
PATIENT HAS BEEN SCREENED AND CATEGORIZED HIGH NUTRITION RISK. PATIENT WILL BE SEEN WITHIN 1-2 DAYS OF ADMISSION. 12/11/17 12/12/[address]
--- NOTE | 2017-12-11 09:45 | NUR ---
DR. OSULLIVAN CAME AND SPOKE TO PT. AT BEDSIDE.
--- NOTE | 2017-12-11 10:12 | NUR ---
PHYSICAL THERAPIST CAME FOR PT. EVAL AND TREATMENT.
[2017-12-11 12:00] VITALS: BP 126/62
[2017-12-11] MEDS ORDERED: FUROSEMIDE 40 MG/4 ML VIAL IVP SCH (12:00)
[2017-12-11] MEDS: INSULIN LISPRO 100 UNITS/ML VIAL SUBQ SCH ×2 (12:27→17:00)
--- NOTE | 2017-12-11 12:52 | NUR ---
WENT TO BATHROOM WITHOUT ASSISTANCE. TOLERATED WELL. NO C/O PAIN. NO SOB, NOTED.
--- NOTE | 2017-12-11 13:22 | NUR ---
AWAKE AND ALERT PATIENT C/O NASAL DRYNESS WITH SUPPLEMENTAL OXYGEN USE POST HHN THERAPY ADDED HUMIDIFIER
[2017-12-11] MEDS ORDERED: COMMUNICATION ORDER MC PRN (14:40)
--- NOTE | 2017-12-11 15:46 | NUR ---
INITIAL REVIEW FAXED TO [facility] [phone]
[2017-12-11 16:00] VITALS: BP 109/56
[2017-12-11] MEDS: PIPER/TAZO 3.375GM/D5W PREMIX 50 ML IV SCH (17:29)
--- NOTE | 2017-12-11 17:38 | NUR ---
DR. OSULLIVAN CAME, INFORMED LATEST PT. BLOOD SUGAR 119. PER DR. OSULLIVAN, HOLD HUMALOG INSULIN 24 UNITS SUB-Q SCHEDULED AT 1700. INFORMED CHARGE NURSE LILI CHO -PADMINI
--- NOTE | 2017-12-11 19:10 | NUR ---
BEDSIDE REPORT GIVEN TO ANUJ LOZANO. IVF INFUSING AT TKO WELL. IN STABLE CONDITION.
--- NOTE | 2017-12-11 19:10 | NUR ---
REPORT RECEIVED FROM CELIA HUNTER. PT VS WITHIN NORMAL LIMITS AND NOT IN ANY ACUTE DISTRESS. WILL CONTINUE TO MONITOR.
[2017-12-11 20:00] VITALS: BP 114/61
--- NOTE | 2017-12-11 20:00 | NUR ---
INITIAL ASSESSMENT COMPLETE. EYES PERRL BILATERALLY. S1 S2 HEART SOUNDS SLIGHTLY MUFFLED. LUNGS CLEAR BILATERALLY. BOWEL SOUNDS ACTIVE X4 QUADRANTS. SKIN INTACT WITH NO OPEN WOUNDS. CAP REFILL <3S. VS WITHIN NORMAL LIMITS. BLOOD SUGAR WITHIN NORMAL LIMITS. IV SITE INTACT, PATENT. IV LINES NOT NEEDED TO BE CHANGED. IV FLUID RUNNING TKO. BED LOCKED IN LOW POSITION. CALL VALLE WITHIN REACH. WILL CONTINUE TO MONITOR. Addendum: 12/11/17 at 2152 by Bubba Fernandes RN EDEMA NOTED BILATERALLY.
--- NOTE | 2017-12-11 20:45 | NUR ---
PM MEDS GIVEN. PT TOLERATED WELL. PT LAYING IN BED. PT ASKS FOR MEDICATION TO HELP WITH SLEEP. WILL CONTACT PRIMARY MD. WILL CONTINUE TO MONITOR.
[2017-12-11] MEDS: LEVOFLOXACIN 750 MG/D5W PREMIX 150 ML IV SCH (20:51)
--- NOTE | 2017-12-11 22:20 | NUR ---
SPOKE TO DR GRAY ABOUT PT REQUESTING MEDICATION TO SLEEP BECAUSE PT STATES SHE HAS NOT BEEN ABLE TO SLEEP SINCE SHE GOT HERE. DR GRAY ORDERED RESTORIL PRN QHS. ALSO TOLD DR GRAY THAT PT STATES SHE HAD AN ALLERGIC REACTION TO LEVAQUIN AND IV SITE AND ARM ARE ITCHING. DR ORDERED TO HOLD LEVAQUIN AND CHANGE IV TO OTHER ARM.
--- NOTE | 2017-12-11 22:25 | NUR ---
PT REFUSES TO CHANGE IV SITE. EXPLAINED TO PT WHY SHE NEEDS A NEW IV, PT VERBALIZED UNDERSTANDING BUT PT STATES SHE IS A HARD STICK AND WILL NOT ACCEPT BEING POKED AGAIN AND THAT THE IV SHE HAS NOW WILL STAY.
[2017-12-11] MEDS: TEMAZEPAM 15 MG CAP PO PRN (23:01)
--- NOTE | 2017-12-11 23:10 | NUR ---
PT LAYING IN BED NOT IN ANY ACUTE DISTRESS. SLEEPING MEDICATION GIVEN. PT TOLERATED WELL. BED LOCKED IN LOW POSITION. CALL VALLE WITHIN REACH. WILL CONTINUE TO MONITOR.
[2017-12-12] VITALS: BP 121/59
[2017-12-12] MEDS: ALBUTEROL 0.083% 2.5 MG/3 ML NEBU INH SCH ×4 (00:52→19:46)
[2017-12-12] MEDS: PIPER/TAZO 3.375GM/D5W PREMIX 50 ML IV SCH ×4 (01:14→18:06)
--- NOTE | 2017-12-12 02:00 | NUR ---
PT SLEEPING, NOT IN ANY ACUTE DISTRESS. WILL CONTINUE TO MONITOR.
[2017-12-12 04:00] VITALS: BP 128/65
--- NOTE | 2017-12-12 05:00 | NUR ---
PT SLEEPING. NOT IN ANY ACUTE DISTRESS. WILL CONTINUE TO MONITOR.
[2017-12-12 06:41] LABS: BASOPHILS # (AUTO) 0.1 K/uL (0.00-0.22); BASOPHILS % (AUTO) 1.3 % (0.0-2.0); EOSINOPHILS # (AUTO) 0.2 K/uL (0-0.4); EOSINOPHILS % (AUTO) 4.6 % (0.0-4.0); HEMATOCRIT 35.7 % (36-48); HEMOGLOBIN 11.8 g/dL (12.0-16.0); LYMPHOCYTES # (AUTO) 0.9 K/uL (2.5-16.5); MEAN CORPUSCULAR HEMOGLOBIN 32 pg (27-31); MEAN CORPUSCULAR HGB CONC 33 g/dL (33-37); MEAN CORPUSCULAR VOLUME 96.2 fL (80-94); MONOCYTES # (AUTO) 0.7 K/uL (0.8-1.0); MONOCYTES % (AUTO) 13.6 % (1.7-9.3); NEUTROPHILS # (AUTO) 3.3 K/uL (1.8-7.7); NEUTROPHILS % (AUTO) 62.5 % (42.2-75.2); PLATELET COUNT (AUTO) 48 K/uL (140-450); RED BLOOD CELL COUNT(AUTO) 3.71 MIL/uL (4.20-5.40); RED CELL DISTRIBUTION WIDTH 18.4 % (11.6-13.7); WHITE BLOOD COUNT (AUTO) 5.2 K/uL (4.8-10.8)
[2017-12-12] MEDS: BLOOD GLUCOSE MONITORING 1 DEV DEV FS SCH ×4 (06:41→21:15)
[2017-12-12 07:04] LABS: ANION GAP 10.8 (8-16); CARBON DIOXIDE 24.7 mmol/L (21-32); CREATININE 0.7 mg/dL (0.6-1.3); MAGNESIUM 1.6 mg/dL (1.8-2.4); PHOSPHORUS 2.3 mg/dL (2.5-4.9); POTASSIUM 3.5 mmol/L (3.5-5.1); TOTAL BILIRUBIN 3.6 mg/dL (0.0-1.0)
--- NOTE | 2017-12-12 07:29 | NUR ---
REPORT GIVEN TO GABE WASHINGTON. PT IN STABLE CONDITION.
--- NOTE | 2017-12-12 07:30 | NUR ---
RECEIVED ON BED AAOX4. NO SOB NOTED, NO C/O PAIN AT THIS TIME. ON 3LPM O2 VIA NASAL CANNULA WITH 93% O2 SATS. CHEST, DIMINISHED AIR ENTRY TO THE BASES. ABDOMEN SOFT, BOWEL SOUNDS PRESENT. +2 PITTING EDEMA ON BLE, INSTRUCTED PT TO CALL FOR ASSISTANCE, CALL LIGHT WITHIN, PT VERBALIZED UNDERSTANDING.
[2017-12-12 08:00] VITALS: BP 115/51
[2017-12-12] MEDS ORDERED: FUROSEMIDE 40 MG/4 ML VIAL IVP SCH (09:00)
[2017-12-12] MEDS: INSULIN LISPRO 100 UNITS/ML VIAL SUBQ SCH ×3 (09:00→17:00)
[2017-12-12] MEDS ORDERED: INSULIN LANTUS 100 UNITS/ML 10 ML VIAL SUBQ SCH (09:00)
[2017-12-12] MEDS: MONTELUKAST SODIUM 10 MG TAB PO SCH (09:22)
[2017-12-12] MEDS: INSULIN LANTUS 100 UNITS/ML 10 ML VIAL SUBQ SCH (09:30)
--- NOTE | 2017-12-12 09:55 | NUR ---
PHYSICAL THERAPY ON GOING AT THE BEDSIDE.
[2017-12-12 12:00] VITALS: BP 143/62
[2017-12-12] MEDS: INSULIN LISPRO SLIDING SCALE 100 UNITS/ML VIAL SUBQ PRN (12:52)
--- NOTE | 2017-12-12 13:30 | NUR ---
PT RESTINF COMFORTABLY. NO SOB NOTED. NO SIGNS OF PAIN AT THIS TIME.
[2017-12-12] MEDS ORDERED: ASPI81CT95 PO (13:55)
[2017-12-12] MEDS ORDERED: SPIR50TA PO (13:58)
[2017-12-12] MEDS ORDERED: METO2.5T1 PO (13:59)
[2017-12-12] MEDS ORDERED: FURO-570 PO ×2 (14:02)
[2017-12-12 16:00] VITALS: BP 114/48
--- NOTE | 2017-12-12 16:45 | NUR ---
PT'S BLOOD SUGAR 54 MG/DL, PT ASYMPTOMATIC. 2 BOXES OF ORANGE JUICE GIVEN AND SOME DEBBI CRACKERS.
--- NOTE | 2017-12-12 19:00 | NUR ---
PT'S BLLOS SUGAR RECHECKED: 207 POST MEAL. COVERAGE NOT GIVEN.
--- NOTE | 2017-12-12 19:10 | NUR ---
REPORT RECEIVED FROM AM NURSE. PT NOT IN ACUTE DISTRESS. WILL CONTINUE TO MONITOR.
--- NOTE | 2017-12-12 19:32 | NUR ---
PT RESTING. NO SOB NOTED. NO SIGNS OF PAIN. ENDORSED TO NEXT SHIFT NURSE FOR CONTINUITY OF CARE.
[2017-12-12 20:00] VITALS: BP 114/52
--- NOTE | 2017-12-12 20:11 | NUR ---
PT REQUEST NOT TO BE WAKE UP AT 0100, SHE WILL CALL IF NEEDED
[2017-12-12] MEDS: LEVOFLOXACIN 750 MG/D5W PREMIX 150 ML IV SCH (20:59)
[2017-12-12] MEDS: FUROSEMIDE 40 MG/4 ML VIAL IVP SCH (21:00)
[2017-12-12] MEDS: TEMAZEPAM 15 MG CAP PO PRN (21:14)
--- NOTE | 2017-12-12 21:18 | NUR ---
PT REFUSED SCHEDULED LASIX AND HUMALOG INSULIN COVERAGE FOR BLOOD SUGAR 176. ADMINISTERED ONLY RESTORIL FOR INSOMNIA. PT TOLERATED WELL.
--- NOTE | 2017-12-12 23:39 | NUR ---
PT IN BED SLEEPING. NOT IN ANY ACUTE DISTRESS. WILL CONTINUE TO MONITOR.
[2017-12-13] VITALS: BP 121/64
[2017-12-13] MEDS: PIPER/TAZO 3.375GM/D5W PREMIX 50 ML IV SCH ×3 (00:21→11:51)
[2017-12-13] MEDS: ALBUTEROL 0.083% 2.5 MG/3 ML NEBU INH SCH ×3 (01:00→13:17)
--- NOTE | 2017-12-13 01:52 | NUR ---
PT WANTS TO SLEEP
--- NOTE | 2017-12-13 03:36 | NUR ---
PT IV PUMP BEEPING, CHANGED IV BAG. PT STILL SLEEPING BUT AROUSEABLE. WILL CONTINUE TO MONITOR.
--- NOTE | 2017-12-13 06:09 | NUR ---
PT SLEEPING BUT AROUSEABLE. PT NOT IN ANY ACUTE DISTRESS. 0600 MED GIVEN. PT TOLERATED WELL. WILL CONTINUE TO MONITOR.
[2017-12-13] MEDS: BLOOD GLUCOSE MONITORING 1 DEV DEV FS SCH ×3 (06:33→16:30)
[2017-12-13 06:43] LABS: BASOPHILS % (AUTO) 0.9 % (0.0-2.0); EOSINOPHILS # (AUTO) 0.4 K/uL (0-0.4); EOSINOPHILS % (AUTO) 8.1 % (0.0-4.0); HEMATOCRIT 36.5 % (36-48); HEMOGLOBIN 12.1 g/dL (12.0-16.0); LYMPHOCYTES # (AUTO) 1.1 K/uL (2.5-16.5); LYMPHOCYTES % (AUTO) 22.8 % (20.5-51.1); MEAN CORPUSCULAR HEMOGLOBIN 32 pg (27-31); MEAN CORPUSCULAR HGB CONC 33 g/dL (33-37); MEAN CORPUSCULAR VOLUME 96.4 fL (80-94); MONOCYTES # (AUTO) 0.7 K/uL (0.8-1.0); MONOCYTES % (AUTO) 15.3 % (1.7-9.3); NEUTROPHILS # (AUTO) 2.4 K/uL (1.8-7.7); NEUTROPHILS % (AUTO) 52.9 % (42.2-75.2); PLATELET COUNT (AUTO) 59 K/uL (140-450); RED BLOOD CELL COUNT(AUTO) 3.79 MIL/uL (4.20-5.40); RED CELL DISTRIBUTION WIDTH 18.3 % (11.6-13.7); WHITE BLOOD COUNT (AUTO) 4.6 K/uL (4.8-10.8)
[2017-12-13 06:53] LABS: ANION GAP 9.2 (8-16); CARBON DIOXIDE 27.1 mmol/L (21-32); CREATININE 0.6 mg/dL (0.6-1.3); POTASSIUM 3.3 mmol/L (3.5-5.1)
[2017-12-13 07:05] LABS: MAGNESIUM 1.7 mg/dL (1.8-2.4); PHOSPHORUS 3.3 mg/dL (2.5-4.9)
--- NOTE | 2017-12-13 07:27 | NUR ---
REPORT GIVEN TO LONNIE WASHINGTON. PT IN STABLE CONDITION.
--- NOTE | 2017-12-13 07:28 | NUR ---
RECEIVED REPORT FROM THE BOTTOM BRUSHER NURSE AT BEDSIDE FOR CONTINUITY OF CARE. PT IS AWAKE AND ORIENTED. SKIN IS INTACT. BLE EDEMA, PITTING +3. MORBIDLY OBESE. NC AT 3L O2. IV ON R RA 22G TKO. V/S WITHIN NORMAL RANGE. DENIES PAIN. NO COMPLAINTS. EATING BREAKFAST. WILL CONTINUE TO MONITOR PT.
[2017-12-13 08:00] VITALS: BP 125/55
[2017-12-13] MEDS: FUROSEMIDE 40 MG/4 ML VIAL IVP SCH (08:37)
[2017-12-13] MEDS: MONTELUKAST SODIUM 10 MG TAB PO SCH (08:37)
[2017-12-13] MEDS: INSULIN LISPRO 100 UNITS/ML VIAL SUBQ SCH ×3 (08:38→17:54)
[2017-12-13] MEDS: INSULIN LANTUS 100 UNITS/ML 10 ML VIAL SUBQ SCH (08:39)
--- NOTE | 2017-12-13 08:40 | NUR ---
ADMINISTERED MORNING MEDS. TOLERATED WELL. WILL CONTINUE TO MONITOR PT.
[2017-12-13] MEDS ORDERED: SPIRONOLACTONE 25 MG TAB PO SCH (09:00)
[2017-12-13] MEDS ORDERED: METOLAZONE 2.5 MG TAB PO SCH (09:00)
--- NOTE | 2017-12-13 10:34 | NUR ---
PT SITTING NEXT TO BED IN A CHAIR. DID HER MORNING ADL'S. SHE LOOKS CLEAN. NEW GOWN. MADE MADE. NO SIGNS OF DISTRESS. NO COMPLAITS. WILL CONTINUE TO MONITOR PT.
[2017-12-13 12:00] VITALS: BP 113/53
[2017-12-13] MEDS: INSULIN LISPRO SLIDING SCALE 100 UNITS/ML VIAL SUBQ PRN (12:28)
[2017-12-13] MEDS ORDERED: MAGNESIUM OXIDE 400 MG TAB PO SCH (12:30)
[2017-12-13] MEDS ORDERED: PNEUMOCOCCAL VACCINE 23 MCG/0.5 ML VIAL IMVAC SCH (14:20)
--- NOTE | 2017-12-13 15:40 | NUR ---
Chief Unit Forester Note: I met with patient at bedside, she is in agreement with home health services for physical therapy. I confirmed her address and phone number listed on face sheet. I explained to her home health agency will contact her regarding home visits. She verbalized understanding. I faxed patient's clinical information and home health order to [facility], fax and to [facility] .
[2017-12-13 16:00] VITALS: BP 128/49
--- NOTE | 2017-12-13 16:47 | NUR ---
WAITING FOR D/C. AWAITING DR. OSULLIVAN'S FINALIZATION OF MEDS.
[2017-12-13] MEDS ORDERED: CLIN300C2 PO (17:04)
--- NOTE | 2017-12-13 17:31 | NUR ---
DC INSTRUCTIONS GIVEN TO PT. PT VERBALIZED UNDERSTANDING. REMOVED TELE MONITOR, IV, CANNULA INTACT. NO BLEEDING NOTED. REMOVED ID BANDS. PT WILL GET DRESSED AND WILL GATHER HER PERSONAL BELONGINGS. WILL LET ME KNOW WHEN SHE IS READY TO GO. WILL GET WHEEL CHAIR READY.
--- NOTE | 2017-12-13 18:11 | NUR ---
STILL WAITING ON TO PROPERTY CLAIM REP PT. ATE DINNER. ALL READY TO GO. WILL HOLD LAST DOSE OF ZOSYN. NO IV ACCESS.
--- NOTE | 2017-12-13 18:20 | NUR ---
PT WHEELED OUT IN A WHEELCHAIR BY MARKETING ADMINISTRATIVE ASSISTANT TO THE CAR. SPOUSE AWAITING PT. PT IS IN STABLE CONDITION. PERSONAL BELONGINGS WITH PT.
--- NOTE | 2017-12-14 09:37 | NUR ---
Retail Merchandising Coordinator Note: Note for 12/13/17: Per Annamaria from [facility] , they may accept patient and will send an RN to patient's home tomorrow.
== END 2017-12-13 18:20 | disposition home health service (06) | DRG 139 ==
LOC: MED 22:50 → MTU 12-11 01:39
PROVIDERS: ADMIT Hospitalist; ATTEND Hospitalist
DX: J18.9 Pneumonia, unspecified organism (principal); J96.20 Acute and chronic respiratory failure, unspecified whether with hypoxia or hypercapnia; I50.43 Acute on chronic combined systolic (congestive) and diastolic (congestive) heart failure; E44.0 Moderate protein-calorie malnutrition; E87.2 Acidosis; K76.0 Fatty (change of) liver, not elsewhere classified; I11.0 Hypertensive heart disease with heart failure; Z99.81 Dependence on supplemental oxygen; E66.01 Morbid (severe) obesity due to excess calories; E11.9 Type 2 diabetes mellitus without complications; J45.909 Unspecified asthma, uncomplicated; Z68.43 Body mass index [BMI] 50.0-59.9, adult; Z91.013 Allergy to seafood; Z79.899 Other long term (current) drug therapy; Z79.4 Long term (current) use of insulin; Z90.49 Acquired absence of other specified parts of digestive tract; Z88.0 Allergy status to penicillin; Z88.5 Allergy status to narcotic agent; Z88.8 Allergy status to other drugs, medicaments and biological substances
CPT/HCPCS: 36415; 71045; 80048; 80053; 81001; 82948; 83605; 83735; 83880; 84100; 84484; 85025; 87040; 87081; 87086; 90732; 93005; 94640; 96365; 96367; 97110; 97116; 97140; 97530; 99285; J0456; J1650; J1815; J1940; J1956; J2405; J2543; J7030; J7613; Q0092